=== PATIENT | male | born 1940 | race Caucasian/White ===

== ENCOUNTER 2020-11-16 07:40 | Observation (INO) | payer MEDICARE ==
[~2020-11-16] VITALS: Ht 182.9 cm; Wt 112.3 kg
[~2020-11-16 07:40] MED LIST: AMIT25TA PO; ASPI-496 PO; AZEL6DRO2 NAS; CHOL2000 PO; FLUT16SP24 NAS; FLUT9.9S NAS; GABA300C10 PO; GLUC100015 PO; LUPIN PO; MIRT30TA4 PO; MULT-717 PO; NEBI5TAB3 PO; OXYC-380 PO; RESV50CA PO; ROSU20TA2 PO; SAW1CAPS6 PO; UBID100C24 PO; VALS160T3 PO; VITAMIN B12 PO
[2020-11-16] MEDS ORDERED: OXYC10TA47 PO (08:19)
[2020-11-16] MEDS ORDERED: ZOLP10TA PO (08:26)
[2020-11-16] MEDS ORDERED: OMEG1CAP23 PO (08:26)
[2020-11-16] MEDS ORDERED: LOSA1TAB25 PO (08:26)
[2020-11-16 08:28] VITALS: BP 110/65
[2020-11-16] MEDS ORDERED: TEST200V3 IM (08:28)
[2020-11-16 08:35] LABS: BASOPHILS % (AUTO) 1 % (0-1); EOSINOPHILS % (AUTO) 3 % (1-7); LYMPHOCYTES % (AUTO) 24 % (22-44); MEAN CORPUSCULAR HEMOGLOBIN 30.8 pg (27.5-34.5); MEAN CORPUSCULAR HGB CONC 33.9 g/dL (33.2-36.2); MEAN PLATELET VOLUME 7.7 fL (7.4-10.4); MONOCYTES % (AUTO) 9 % (2-9); NEUTROPHILS % (AUTO) 64 % (42-75); PLATELET COUNT 224 x10^3/uL (130-400); RED BLOOD COUNT 4.91 x10^6/uL (4.38-5.82); RED CELL DISTRIBUTION WIDTH 13.7 % (9.4-14.8)
[2020-11-16 08:37] LABS: MD NO
[2020-11-16 08:47] LABS: ANION GAP 7 mmol/L (5-15); CALCIUM 8.9 mg/dL (8.5-10.1); CHLORIDE 111 mmol/L (98-107); CREATININE 1.45 mg/dL (0.7-1.3)
[2020-11-16] MEDS ORDERED: FENTANYL PF 100 MCG/2ML ONE (09:50)
[2020-11-16] MEDS ORDERED: LIDOCAINE 2%, 20ML ONE (09:50)
[2020-11-16] MEDS ORDERED: CEFAZOLIN 1,000 MG ONE (09:50)
[2020-11-16] MEDS ORDERED: CEFAZOLIN PMX 1GM/50ML 50 ML ONE (09:50)
[2020-11-16] MEDS ORDERED: MIDAZOLAM 1 MG/ML, 5ML ONE (09:50)
[2020-11-16] MEDS ORDERED: HEPARIN 1,000 UNITS/ML, 10ML ONE (10:27)
[2020-11-16] MEDS ORDERED: VERAPAMIL 2.5 MG/ML, 2ML ONE (10:27)
[2020-11-16] MEDS ORDERED: BIVALIRUDIN 250 MG ONE (11:05)
[2020-11-16] MEDS ORDERED: TICAGRELOR 90 MG TABLET ONE (11:40)
[2020-11-16] MEDS ORDERED: OxyconTIN ER 10 MG TAB.ER PO PRN (12:30)
[2020-11-16] MEDS ORDERED: ZOLPIDEM 10MG TABLET PO PRN (12:30)
[2020-11-16] MEDS ORDERED: ACETAMINOPHEN 325 MG TABLET PO PRN (12:30)
[2020-11-16] MEDS ORDERED: BIVALIRUDIN 250 MG in SODIUM CHLORIDE 0.9% 50 ML IV SCH (12:30)
[2020-11-16] MEDS ORDERED: SODIUM CHLORIDE 0.9% 1,000 ML IV SCH (12:30)
[2020-11-16] MEDS ORDERED: LOSA100T2 PO (14:22)
[2020-11-16 14:25] VITALS: BP 129/71
[2020-11-16] MEDS ORDERED: HYDROCHLOROTHIAZIDE 12.5 MG CAPSULE PO SCH ×2 (15:00)
[2020-11-16] MEDS ORDERED: CLOPIDOGREL 300 MG TABLET PO ONE (17:00)
[2020-11-16 18:52] VITALS: BP 138/64
[2020-11-16] MEDS: LOSARTAN 100 MG TAB PO SCH (18:54)
[2020-11-16 20:00] VITALS: BP 142/77
[2020-11-16] MEDS: GABAPENTIN 300 MG CAPSULE PO SCH (20:13)
[2020-11-16] MEDS: AZELASTINE HCL 0.5% NAS SCH (20:14)
[2020-11-16] MEDS: FLUTICASONE NASAL SPRAY 16GM NAS SCH (20:14)
[2020-11-16] MEDS ORDERED: TICAGRELOR 90 MG TABLET PO SCH (21:00)
[2020-11-17 02:23] VITALS: BP 116/64
[2020-11-17 04:30] LABS: ANION GAP 6 mmol/L (5-15); CALCIUM 8.8 mg/dL (8.5-10.1); CHLORIDE 111 mmol/L (98-107); CREATININE 1.15 mg/dL (0.7-1.3)
[2020-11-17 07:25] VITALS: BP 136/75
[2020-11-17] MEDS ORDERED: OMEGA-3/FISH OIL CAPSULE PO SCH (09:00)
[2020-11-17] MEDS ORDERED: NEBIVOLOL HCL 5 MG TABLET PO SCH (09:00)
[2020-11-17] MEDS ORDERED: CLOPIDOGREL 75 MG TABLET PO SCH (09:00)
[2020-11-17] MEDS ORDERED: CHOLECALCIFEROL 5,000u TAB PO SCH (09:00)
[2020-11-17] MEDS ORDERED: ASPIRIN 81 MG TABLET EC PO SCH (09:00)
[2020-11-17] MEDS ORDERED: TEMPLATE NON-FORMULARY MED. (Ubidecarenone (Coq-10) 1 TAB) PO SCH (09:00)
[2020-11-17] MEDS: AZELASTINE HCL 0.5% NAS SCH (09:10)
[2020-11-17] MEDS: LOSARTAN 100 MG TAB PO SCH (09:10)
[2020-11-17] MEDS: FLUTICASONE NASAL SPRAY 16GM NAS SCH (09:11)
[2020-11-17] MEDS: GABAPENTIN 300 MG CAPSULE PO SCH (09:12)
[2020-11-17] MEDS ORDERED: CLOP75TA PO (09:49)
== END 2020-11-17 11:30 | disposition home or self-care (01) ==
LOC: CACL 07:40 → INTOOBSV 12:09 → CACL 12:09 → 5SO 12:09 → DCLOUNGE 11-17 11:23
PROVIDERS: ADMIT Internal Medicine Cardiovascular Disease; ATTEND Internal Medicine Cardiovascular Disease
DX: I25.10 Atherosclerotic heart disease of native coronary artery without angina pectoris (principal); I12.9 Hypertensive chronic kidney disease with stage 1 through stage 4 chronic kidney disease, or unspecified chronic kidney disease; N18.9 Chronic kidney disease, unspecified; E78.5 Hyperlipidemia, unspecified; G47.33 Obstructive sleep apnea (adult) (pediatric); M48.00 Spinal stenosis, site unspecified; F10.10 Alcohol abuse, uncomplicated; Z79.899 Other long term (current) drug therapy
CPT/HCPCS: 36415; 80048; 85025; 92978; 93005; 93458; 93571; 93572; 96360; 96361; 99156; 99157; C1725; C1753; C1769; C1874; C1887; C1894; C9600; G0378; J0583; J0690; J1644; J2250; J3010; J3490; J7030; Q9967